=== PATIENT | female | born 1945 | race Caucasian/White ===

== ENCOUNTER 2020-03-23 11:25 | Outpatient (RCR) | payer MEDICARE, OTHER | END 2020-03-25 15:06 | LOC: OPPGERO 11:25 | DX: F43.21 Adjustment disorder with depressed mood (principal); F93.0 Separation anxiety disorder of childhood; Z63.0 Problems in relationship with spouse or partner; T74.11XA Adult physical abuse, confirmed, initial encounter; E78.5 Hyperlipidemia, unspecified; K21.9 Gastro-esophageal reflux disease without esophagitis; Z59.8 Other problems related to housing and economic circumstances; Z63.32 Other absence of family member; Z79.899 Other long term (current) drug therapy; Z96.653 Presence of artificial knee joint, bilateral ==

== ENCOUNTER 2020-03-28 09:15 | Outpatient (RCR) | payer MEDICARE, OTHER | END 2020-04-26 16:07 | LOC: OPPGERO 09:15 | DX: F43.21 Adjustment disorder with depressed mood (principal); J43.8 Other emphysema; E78.5 Hyperlipidemia, unspecified; K21.9 Gastro-esophageal reflux disease without esophagitis; F32.9 Major depressive disorder, single episode, unspecified; T74.31XA Adult psychological abuse, confirmed, initial encounter; R42 Dizziness and giddiness; R00.0 Tachycardia, unspecified; Z63.0 Problems in relationship with spouse or partner; Z63.4 Disappearance and death of family member; Z63.5 Disruption of family by separation and divorce; Z96.653 Presence of artificial knee joint, bilateral; Z79.899 Other long term (current) drug therapy ==

== ENCOUNTER 2020-04-27 10:31 | Outpatient (RCR) | payer MEDICARE, OTHER | END 2020-05-27 14:11 | LOC: OPPGERO 10:31 | DX: F43.21 Adjustment disorder with depressed mood (principal); T74.11XA Adult physical abuse, confirmed, initial encounter; E78.5 Hyperlipidemia, unspecified; K21.9 Gastro-esophageal reflux disease without esophagitis; Z79.899 Other long term (current) drug therapy; Z63.0 Problems in relationship with spouse or partner; Z63.4 Disappearance and death of family member; Z96.653 Presence of artificial knee joint, bilateral ==

== ENCOUNTER → 2024-07-23 | Day surgery (SDC) | payer MEDICARE ==
[~2024-07-23] MED LIST: Balanced Salt Ophth Irrig 15 ML BOTTLE *BULK OP SCH; Cyclopentolate 2% Ophth Soln 1 BOTTLE *BULK OP SCH; EPINEPHrine 1 MG/ML (1:1000) 1 ML AMP IR SCH; Ketorolac 0.5% Ophth Soln 5 ML Bottle *BULK OP SCH; Midazolam 2 MG/2 ML VIAL IV ONE; Phenylephrine 10% Ophth Soln 5 ML BOTTLE *BULK OP SCH; Polymyxin B Sulfate/Trimethoprim Ophth Soln 10 ML BOTTLE *BULK OP SCH; Povidone Iodine 5% Ophth Soln 30 ML BOTTLE *BULK OP SCH; Proparacaine 0.5% Ophth Soln 15 ML BOTTLE *BULK OP SCH; Tropicamide 1% Ophth Soln Bottle *BULK OP SCH
== END | disposition home or self-care (01) ==
LOC: MSO 10:21
DX: H25.11 Age-related nuclear cataract, right eye (principal)
CPT/HCPCS: 00142; J0171; J2250; V2632

== ENCOUNTER → 2024-08-06 | Day surgery (SDC) | payer MEDICARE | END | disposition home or self-care (01) | LOC: MSO 06:25 | DX: H25.813 Combined forms of age-related cataract, bilateral (principal) | CPT/HCPCS: 00142; J0171; J2250; V2632 ==